=== PATIENT | female | born 1945 | race Caucasian/White ===

== ENCOUNTER 2017-04-18 12:00 | Inpatient (IN) | payer OTHER ==
[2017-04-18] MEDS ORDERED: NALOXONE HCL 0.4 MG/ML INJ ONE ×2 (12:04→12:36)
[2017-04-18] MEDS ORDERED: NALOXONE HCL 0.4 MG/ML INJ IVP ONE ×4 (12:12→14:40)
[2017-04-18] MEDS ORDERED: NALOXONE HCL 2 MG in D5W 500 ML IV SCH ×2 (12:15→14:00)
--- NOTE | 2017-04-18 12:17 | EDPHY ---
H & P Time Seen by Provider: 04/18/17 12:02 HPI/ROS: CHIEF COMPLAINT: Oxycodone overdose Limitations: Altered mental status HISTORY OF PRESENT ILLNESS: 71-year-old female presents after an intentional oxycodone overdose. Hip replacement 1 week ago, prescribed oxycodone, 90 tablets after the procedure. She is staying with her sister and [id number] while she recovers. Yesterday she was complaining of pain, but did not seem overly depressed. She was last seen at 11:30 p.m. last night by her sister. This morning, her family found her unconscious and barely breathing in her room. EMS was called. She had agonal respirations on EMS arrival. She was given intranasal Narcan, with improvement in respiratory status. This was an intentional overdose, as she tells me that she does not want to live any longer. Family confirms this. She was placed on an M1 hold by PD. REVIEW OF SYSTEMS: Unable to determine Past Medical/Surgical History: Hip replacement Depression Social History: staying with sister Physical Exam: General Appearance: Drowsy, moaning, opens eyes to voice and is able to answer a few questions, very limited verbal response, normal respiratory rate Eyes: Pupils 2 mm and equal ENT, Mouth: Mucous membranes dry Neck: Normal inspection Respiratory: Upper airway sounds present, good air exchange Cardiovascular: Regular tachycardia Gastrointestinal: Abdomen is soft Neurological: Drowsy, moves all extremities, does not follow commands Skin: Warm and dry Extremities: Normal inspection Psychiatric: Flat affect Constitutional: Initial Vital Signs Temperature (C) 36.4 C 04/18/17 12:21 Heart Rate 105 H 04/18/17 12:21 Respiratory Rate 24 H 04/18/17 12:21 Blood Pressure 101/64 04/18/17 12:21 O2 (L/minute) 15 Allergies/Adverse Reactions: No Allergies [NKA] Allergy (Verified 04/18/17 16:56) Home Medications: Medication Instructions Recorded Acyclovir [Zovirax 400 mg (*)] 400 mg PO TID PRN 04/18/17 Estropipate [Ogen 1.5mg (*)] 1.5 mg PO DAILY 04/18/17 oxyCODONE IR [Oxycodone Ir (*)] 5 - 10 mg PO Q4HRS PRN 01/05/18 Medical Decision Making - Diagnostics EKG Interpretation: EKG interpreted by me reveals normal sinus rhythm, rate 96, no ST or T segment changes. Imaging Results: CXR independently reviewed by me: NAD CXR after central line placement independently reviewed by me: no PTX Procedures: Procedure: Central line placement. Indication: Hypotension, poor vascular access. The risks and benefits were not discussed with the patient because she is obtunded. A timeout was observed. Full maximal sterile barrier technique was used including cap, gown, sterile gloves, large sheet, hand washing and chlorhexidine prep. The area was anesthetized with 1% lidocaine. A 7 Kazakh triple lumen was placed in the right subclavian vein using standard Seldinger technique. Ultrasound-guided technique. There were no complications. Blood return low pressure, dark blood. Patient tolerated procedure well. CXR results : Appropriate line placement, and no pneumothorax. X-ray was interpreted by myself. Radiologist interpretation is pending. The procedure was performed by myself. ED Course/Re-evaluation: This patient presents with a narcotic overdose in a suicidal attempt. On my initial exam, she is obtunded, but breathing adequately. Suctioning by RT, as she had copious upper airway sounds; gastric contents aspirated, c/w aspiration. Lungs are clear to auscultation after suctioning anteriorly. O2 sat 96% on NRB. Narcan 0.4 mg IV given, followed by a Narcan drip. She will need to be on a Narcan drip for several hours until the oxycodone clears her system. Charcoal was not given, given unknown time of ingestion and altered mental status. 1:15 p.m.-on a Narcan drip, respiratory rate 12, oxygen saturation 94% on non- rebreather, drowsy but opens eyes to verbal stimuli. Blood pressure 83/53, IV fluid bolus given. Chest x-ray reveals no infiltrate, though this patient aspirated prior to arrival; will likely need abx, will obs for now. The hospitalist service was consulted for admission to the ICU. 2 p.m.-the patient remains hypotensive. Peripheral access limited. I will place a central line. 3:00 p.m.-patient remains hypotensive after a 2nd L of normal saline. She continues to be on a Narcan drip with adequate respirations. A dopamine drip was started, will titrate to SBP 90. d/w Dr. Garcia, CXR after central line placement, heart border appears sharp, query anterior PTX. Doubt PTX, given 1 attempt without complications and a supraclavicular approach. Will repeat CXR while in ICU, Dr. Borges notified. Pt transferred to ICU on 100% NRB , on Narcan and Dopamine IV drips. Remains in critical condition, but stabilized. I spent a total of 45 minutes of critical care time in obtaining history, performing a physical exam, bedside monitoring of interventions, collecting and interpreting tests and discussion with consultants but not including time spent performing procedures. Differential Diagnosis: Altered mental status including but not limited to hypoglycemia, infectious process, CVA/ICH, electrolyte abnormality, head injury and intoxicants. - Data Points Laboratory Results: Laboratory Results 04/18/17 12:01 04/18/17 12:01 Medications Given: Heparin Sodium (Porcine) (Heparin Sc Injection) 5,000 unit SC Q8 SANG Stop: 10/15/17 15:59 Last Admin: 04/19/17 14:40 Dose: Not Given Sodium Chloride (Ns) 1,000 mls @ 125 mls/hr IV CONT SANG Stop: 10/15/17 12:59 Last Admin: 04/19/17 11:11 Dose: 1,000 mls Naloxone HCl 2 mg/ Dextrose 505 mls @ 0 mls/hr IV CONT SANG; Per Protocol PRN Reason: Protocol Stop: 10/15/17 13:59 Last Admin: 04/18/17 16:50 Dose: 505 mls Dopamine HCl/Dextrose (Dopamine 1600 Mcg/Ml (Premix)) 250 mls @ 0 mls/hr IV CONT SANG; Titrate PRN Reason: Protocol Stop: 10/16/17 04:59 Last Admin: 04/19/17 04:48 Dose: 250 mls Ampicillin Sodium/Sulbactam (Sodium 3 gm/ Sodium Chloride) 100 mls @ 200 mls/ hr IV Q6H SANG PRN Reason: Protocol Stop: 05/19/17 10:29 Last Admin: 04/19/17 16:02 Dose: 100 mls Discontinued Medications Dextrose (Dextrose 50% Syringe) 25 gm IVP ONCE ONE Stop: 04/18/17 16:46 Last Admin: 04/18/17 16:48 Dose: 25 gm Naloxone HCl 2 mg/ Dextrose 505 mls @ 0 mls/hr IV CONT SANG; Per Protocol PRN Reason: Protocol Stop: 10/15/17 12:14 Last Admin: 04/18/17 12:42 Dose: 505 mls Sodium Chloride (Ns) 1,000 mls @ 0 mls/hr IV ONCE ONE PRN Reason: Wide Open Stop: 04/18/17 12:41 Last Admin: 04/18/17 12:41 Dose: 1,000 mls Sodium Chloride (Ns) 1,000 mls @ 0 mls/hr IV ONCE ONE PRN Reason: Wide Open Stop: 04/18/17 13:52 Last Admin: 04/18/17 14:30 Dose: 1,000 mls Calcium Gluconate (Calcium Gluconate 1 Gm (Premix)) 50 mls @ 100 mls/hr IV ONCE ONE Stop: 04/18/17 14:42 Last Admin: 04/18/17 16:48 Dose: 50 mls Ampicillin Sodium/Sulbactam (Sodium 3 gm/ Sodium Chloride) 100 mls @ 200 mls/ hr IV Q12H SANG PRN Reason: Protocol Stop: 05/18/17 16:29 Last Admin: 04/19/17 04:17 Dose: 100 mls Dopamine HCl/Dextrose (Dopamine 1600 Mcg/Ml (Premix)) 250 mls @ 0 mls/hr IV EDNOW ONE; Titrate PRN Reason: Protocol Stop: 04/18/17 15:05 Last Admin: 04/18/17 15:09 Dose: 250 mls Sodium Chloride (Ns) 500 mls @ 0 mls/hr IV ONCE ONE PRN Reason: Wide Open Stop: 04/18/17 17:00 Last Admin: 04/18/17 17:26 Dose: 500 mls Sodium Chloride (Ns) 1,000 mls @ 0 mls/hr IV ONCE ONE PRN Reason: Wide Open Stop: 04/19/17 09:18 Last Admin: 04/19/17 10:00 Dose: 1,000 mls Insulin Human Regular (Humulin R) 10 unit IVP ONCE ONE Stop: 04/18/17 16:46 Last Admin: 04/18/17 16:48 Dose: 10 units Naloxone HCl (Narcan) 0.4 mg IVP EDNOW ONE Stop: 04/18/17 12:13 Last Admin: 04/18/17 12:12 Dose: 0.4 mg Naloxone HCl (Narcan) 0.4 mg IVP EDNOW ONE Stop: 04/18/17 12:41 Last Admin: 04/18/17 12:40 Dose: 0.4 mg Naloxone HCl (Narcan) 0.4 mg IVP EDNOW ONE Stop: 04/18/17 14:16 Last Admin: 04/18/17 14:20 Dose: 0.4 mg Naloxone HCl (Narcan) 0.4 mg IVP EDNOW ONE Stop: 04/18/17 14:41 Last Admin: 04/18/17 14:40 Dose: 0.4 mg Ondansetron HCl (Zofran) 4 mg IVP EDNOW ONE Stop: 04/18/17 15:41 Last Admin: 04/18/17 15:44 Dose: 4 mg Sodium Bicarbonate (Sodium Bicarbonate) 50 meq IVP ONCE ONE Stop: 04/18/17 14:14 Last Admin: 04/18/17 16:51 Dose: 50 meq Sodium Polystyrene Sulfonate (Kayexalate) 30 gm NE ONCE ONE Stop: 04/18/17 16:46 Last Admin: 04/18/17 16:50 Dose: 30 gm Departure - Departure Disposition: [facility] Inpatient Acute Clinical Impression: Narcotic overdose Qualifiers: Encounter type: initial encounter Injury intent: intentional self-harm Qualified Code(s): T40.602A - Poisoning by unspecified narcotics, intentional self-harm, initial encounter Suicide attempt by drug ingestion Qualifiers: Encounter type: initial encounter Qualified Code(s): T50.902A - Poisoning by unspecified drugs, medicaments and biological substances, intentional self-harm , initial encounter Respiratory failure Qualifiers: Chronicity: acute Respiratory failure complication: hypoxia Qualified Code(s): J96.01 - Acute respiratory failure with hypoxia Condition: Critical
[2017-04-18 12:21] LABS: PLATELET COUNT 207 10^3/uL (150-400)
[2017-04-18] MEDS ORDERED: NS 1,000 ML IV ONE ×2 (12:40→13:51)
--- NOTE | 2017-04-18 12:51 | CPEKG ---
Heart Rate: 96 RR Interval: 625 P-R Interval: 152 QRSD Interval: 84 QT Interval: 380 QTC Interval: 481 P [place]: 88 QRS [place]: 78 T Wave [place]: 76 EKG Severity - NORMAL ECG - EKG Impression: SINUS RHYTHM Electronically Signed By: Miranda Tony 18-Apr-2017 15:16:30
[2017-04-18] MEDS ORDERED: ACETAMINOPHEN 325 MG TAB PO PRN (12:55)
[2017-04-18] MEDS ORDERED: ONDANSETRON DISINTEGRATING 4 MG TAB PO PRN (12:55)
[2017-04-18] MEDS ORDERED: ONDANSETRON 4 MG/2 ML VIAL IVP PRN (12:55)
--- NOTE | 2017-04-18 13:44 | ASMTCMCOM ---
CM Note CM Note Notes: Pt sister Tia and brother in law Addison in [facility]. Addison reported that he discovered pt unresponsive in her room and called 911. They expressed that they did not want medical action taken. Tia stated that her sister wanted to and that is what she wants for her. Addison was open to conversation and resources and provided most of the information regarding the pt's current circumstances. Addison indicated that the pt recently had hip surgery in hopes that her pain would be alleviated. He stated that she has been in pain for quiet some time. She was upset that she continued to be in pain. He stated that they had a "normal" evening watching TV and playing cards with no indication that she was suicidal. Isatu and Addison stated that pt did not want to live and he iwas her wis was provided with pt education reagarding medical aid-in dying and compassion and choices website. Med chart does not reflect POA. Psych care/ pain managment likely. Psych eval to be completed when med clear. DC plan [facility] to follow. Date Signed: 04/18/2017 01:44 PM Electronically Signed By:Jose Daniel Palomino LCSW
[2017-04-18] MEDS ORDERED: SODIUM POLY SULF 15 GM/60 ML BOTTLE PR ONE ×2 (14:11→16:45)
[2017-04-18] MEDS ORDERED: SODIUM BICARBONATE 50 MEQ/50 ML SYR IVP ONE (14:13)
[2017-04-18] MEDS ORDERED: CALCIUM GLUCONATE 50 ML IV ONE (14:13)
[2017-04-18] MEDS ORDERED: INSULIN REGULAR HUMAN 100 UNIT/ML IVP ONE ×2 (14:13→16:45)
[2017-04-18] MEDS ORDERED: D50W 25 GM/50 ML SYR IVP ONE ×2 (14:14→16:45)
--- NOTE | 2017-04-18 14:53 | GHP ---
[f rep st] HISTORY AND PHYSICAL DATE OF ADMISSION: 04/18/2017 CHIEF COMPLAINT: Intentional opioid overdose. HISTORY OF PRESENT ILLNESS: The patient is a 71-year-old female, with a history of recent total hip replacement and depression, who presents to the emergency department with altered mental status and decreased respiratory drive. She lives independently, but had a hip replacement 1 week ago, and since then has been staying with her sister and gqsitox-hu-[id number]. The patient is currently quite somnolent on a Narcan drip and not cooperative with providing a history, and thus history is obtained from her family. Her sister states that her sister has been depressed. It sounds as though she underestimated the postop recovery course and has been struggling with postop pain. Although she did not overtly state she planned to overdose, they felt that she was growing more hopeless, and her sister believes she wished to no longer live. They think she may have a do not resuscitate order, although they are unsure. She was in poor spirits last night before bedtime. Her sister found her this morning in a semiconscious state with snoring-type respirations and they were unable to arouse her. They called 911 and she was found with agonal respirations by EMS, but was not overtly cyanotic. She received intranasal Narcan in the field with improvement in her respiratory status, but by the time she arrived to the emergency department, she was again somnolent with decreased respiratory drive. Copious secretions were suctioned from her respiratory tract and it is suspected that she aspirated. There have been no reports of fevers or cough prior to this event. She received 2 more doses of Narcan with good response, and ultimately required a Narcan drip. At the time of my evaluation, her respiratory rate is at 20, and she is 94% on 10 L of oxygen. She does open her eyes to verbal stimulus and answers simple questions and follows basic commands. However, she is not willing to provide a history. I inspected her bottle of oxycodone which was written for #90 tablets and is currently empty. She did report to the emergency department physician that she intentionally overdosed on her oxycodone. She is admitted to the intensive care unit on a Narcan drip for further management. PAST MEDICAL/SURGICAL HISTORY: 1. Osteoarthritis. 2. Total hip replacement 1 week ago. 3. Depression. MEDICATIONS: Please see [facility] for completed outpatient medication list. ALLERGIES: Unable to assess. FAMILY HISTORY: Reviewed and noncontributory. SOCIAL HISTORY: The patient lives independently. However, she has recently been staying with her sister and [id number] while recovering from hip surgery. Tobacco and alcohol status are unknown. REVIEW OF SYSTEMS: Unobtainable. PHYSICAL EXAMINATION: VITAL SIGNS: Current temperature is 36.4, blood pressure 92/58. However, she has trended down to the 80s over 60s. Heart rate is 96, respiratory rate 18 to 20. She is 94% on 10 L of oxygen by non- rebreather mask. GENERAL: The patient is somnolent though awakens to verbal stimuli. HEENT: Head is atraumatic, normocephalic. Pupils equal, round, reactive to light. Extraocular motions intact. Oropharynx is clear. Mucous membranes are dry. NECK: Supple. There is no JVD. HEART: Regular rate and rhythm. LUNGS: Reveal bibasilar crackles, with decreased air exchange. ABDOMEN: Soft, nondistended, nontender, with normoactive bowel tones. EXTREMITIES: Without cyanosis, clubbing, or edema. Warm, well perfused. NEUROLOGIC: She moves all 4 extremities. DATA REVIEWED: Chest x-ray performed in the emergency department shows a right lower lobe infiltrate. EKG shows normal sinus rhythm with no ST-segment or T-wave changes suggestive of acute ischemia. ASSESSMENT AND PLAN: The patient is a 71-year-old female with a history of osteoarthritis, recent hip replacement, who is admitted to the intensive care unit with an intentional opioid overdose. # Suicide attempt / Intentional opioid overdose. Patient is hypoxic and hypotensive, currently on a Narcan drip and protecting her airway. Her blood gas shows a pH of 7.32 with a normal pCO2. I will continue Narcan drip and wean as able as the oxycodone wears off. She may require intubation. Once she is medically cleared, she will need a psych evaluation and likely inpatient psychiatric treatment given the gravity of this suicide attempt. # Acute hypoxemic respiratory failure secondary to intentional opioid overdose. Currently on 10 L/minute of oxygen. It sounds as though she did aspirate with vague right lower lobe infiltrate on CXR and a white blood cell count of 13 ,000. Will obtain blood cultures, sputum culture, and cover with Unasyn. She is afebrile. Send a lactate. # Hypotension. This may be a volume issue and is improving with fluid boluses, but difficulty with IV access in ED and pt was started on Dopamine. Continue volume resuscitation and wean pressors as able. # Anion gap metabolic acidosis. Suspect lactic acidosis due to hypoperfusion in setting of respiratory failure, lactate pending. Plan for aggressive hydration and will follow closely with q6h lactates. # Acute kidney injury. It is unclear what her baseline is. She presents with creatinine of 2. I suspect this is prerenal secondary to hypoperfusion. Will send urine studies to calculate a FENa. Will hydrate and follow her renal function closely. # Hyperkalemia. K 5.9, repeat 6. Give Calcium gluconate, sodium bicarb, insulin / dextrose now. Rectal kayexalate. Repeat K this afternoon. Should also improve with hydration. # Elevated LFT's. Again, suspect hypoperfusion. Hydrate and follow. # Status post total hip arthroplasty. There is no evidence of a fall as she was found in her bed. She will require PT/OT once her respiratory status is stabilized. # DVT prophylaxis, heparin. # Code status: Pt has a DNR MOLST form signed in 2013, which pre-dates her acute suicidality. Discussed with family that we are obligated to treat a suicide attempt, which we did in the ED before we had her MOLST. At this point , she is stable. Will continue treatment for suicide attempt with narcan drip, O2, atbx for aspiration pna, IVF's for organ hypoperfusion and electrolyte management. However, will honor her DNR from 2013 in the event of an unexpected arrest. # Disposition: Admit to inpatient status. She will require greater than 48 hours hospitalization for ongoing management of her respiratory failure, aspiration pneumonia, and suicide attempt. /[id number]/MODL MTDD
[2017-04-18] MEDS ORDERED: ONDANSETRON 4 MG/2 ML VIAL IVP ONE (15:40)
[2017-04-18] MEDS: NS 1,000 ML IV SCH (16:23)
[2017-04-18] MEDS: AMPICILLIN/SULBACTAM 3 GM in NS 100 ML IV SCH (16:28)
[2017-04-18] MEDS: HEPARIN 5,000 UNIT/0.5 ML SYR SC SCH ×2 (16:49→22:01)
[2017-04-18] MEDS ORDERED: SODIUM BICARBONATE 50 MEQ/50 ML SYR ONE (16:50)
[2017-04-18] MEDS ORDERED: NS 500 ML IV ONE (16:59)
--- NOTE | 2017-04-18 17:03 | PDMN ---
Medical Necessity Medical necessity: Pt meets INPT criteria per MD and [facility] M-153 Drug Ingestion or Overdose (opioid overdose - pt hypoxic and hypotensive with acute hypoxemic respiratory failure on 10L O2, anion gap metabolic acidosis, acute kidney injury , hyperkalemia, elevated LFTs, suspected hypoperfusion req. IV fluids, IV Narcan , IV Dopamine s/p recent SAY).
[2017-04-18 17:41] LABS: CREATINE KINASE 101 IU/L (0-156)
[2017-04-18] MEDS ORDERED: AMPICILLIN/SULBACTAM 3 GM in NS 100 ML IV SCH (18:00)
[2017-04-19] MEDS: AMPICILLIN/SULBACTAM 3 GM in NS 100 ML IV SCH ×4 (04:17→20:52)
[2017-04-19 04:27] LABS: PLATELET COUNT 164 10^3/uL (150-400)
[2017-04-19] MEDS: HEPARIN 5,000 UNIT/0.5 ML SYR SC SCH ×3 (05:33→20:52)
--- NOTE | 2017-04-19 09:11 | HOSPPROG ---
Hospitalist Progress Note Assessment/Plan: Intentional opioid overdose with AHRF initially requiring 15 LPM and narcan drip - first suicide attempt per pt report. She is irritable and not interested in discussing her mental health. Denies intent to self harm. Off Narcan drip, respiratory status improved, 1 LPM psych eval for inpt tx when medically cleared Hypotension - Suspect secondary to opiates / volume depletion, still requiring dopamine Repeat fluid bolus this am ok to tolerate MAP of 60, this is not sepsis wean dopamine as able Elevated LFT's - shock liver is suspected check hepatitis panel, u/s AGMA - resolved, secondary to lactic acidosis in setting of hypoperfusion ROSENDO - resolved with IVF's Hyperkalemia - resolved S/P SAY - denies pain at this time DNR - will honor MOLST from 2013, but need to treat suicide attempt DVT PPLX - SANG Dispo - cont inpt, M1 hold Subjective: Pt is awake, irritable, a bit rude. She wants a coke. She does not want to discuss any h/o depression or self harm. She says she "doesn't remember anything", but notes it didn't go well after her hip surgery. Denies pain at this time. Objective: Vital Signs Temp Pulse Resp BP Pulse Ox 37.4 C 95 11 L 112/52 L 96 04/19/17 00:00 04/19/17 07:00 04/19/17 07:00 04/19/17 07:00 04/19/17 07:00 Laboratory Results 04/19/17 04:10 04/19/17 04:00 04/18/17 04/19/17 04/20/17 05:59 05:59 05:59 Intake Total 2905 Output Total 1250 Balance 1655 - Physical Exam Constitutional: no apparent distress Eyes: PERRL Ears, Nose, Mouth, Throat: moist mucous membranes Cardiovascular: regular rate and rhythym Respiratory: no respiratory distress, clear to auscultation Gastrointestinal: normoactive bowel sounds, soft, non-tender abdomen Skin: warm Musculoskeletal: full muscle strength Neurologic: AAOx3 Psychiatric: interacting appropriately ICD10 Worksheet Patient Problems: Problems Problem Status Onset Narcotic overdose Acute Respiratory failure Acute Suicide attempt by drug ingestion Acute
[2017-04-19] MEDS ORDERED: NS 1,000 ML IV ONE (09:17)
[2017-04-19] MEDS: NS 1,000 ML IV SCH ×2 (09:47→11:11)
--- NOTE | 2017-04-19 12:02 | GCON ---
[f rep st] CONSULTATION PULMONARY/CRITICAL CARE CONSULTATION REFERRING PHYSICIAN: Bessy Gann MD REASON FOR REFERRAL: Evaluation and management of metabolic acidosis and respiratory failure. HISTORY OF PRESENT ILLNESS: The patient is a 71-year-old woman with a history of a recent total hip replacement and depression. Her hip replacement was done about a week ago and she has been staying w ith her sister and [id number]-[id number]. The patient has apparently been depressed and suffering from post operative pain. She was in fairly poor spirits on the day prior to admission, then was found this mo rning in a semiconscious state with reduced respirations and she could not be aroused. EMS was patel antwon. She received intranasal Narcan with improvement in her respiratory status, but this declined by t he time she got to the emergency department. Oral suctioning revealed a large amount of thick secret ions, and it was felt that she had probably aspirated. She was given several more doses of Narcan an d a nasal trumpet was placed, with transient improvement in her respiratory symptoms. She was then p laced on a Narcan drip. She is responsive to noxious stimuli, but is not following commands or answe ring questions. PAST MEDICAL HISTORY: 1. Total hip replacement a week ago. 2. Depression. MEDICATIONS: At the time of admission include oxycodone, , and Ogen. ALLERGIES: None. SOCIAL HISTORY: The patient usually lives independent, but has been staying with family postoperativ natalee. REVIEW OF SYSTEMS: Unobtainable. PHYSICAL EXAMINATION: GENERAL: The patient is somnolent but arousable to noxious stimuli while on t he Narcan drip. VITALS: Her blood pressure is 98/57 with a heart rate of 94. She is afebrile. Oxy gen saturations are 98% on 5 L. HEENT: Normocephalic and atraumatic. No icterus. She has a nasal trumpet in place. NECK: No adenopathy. Trachea is midline. CHEST: Clear to auscultation. CARDIA C: Regular rate and rhythm without murmur. ABDOMEN: Soft, nontender. Bowel sounds are present. E XTREMITIES: No clubbing, cyanosis, or edema. NEURO: The patient is somnolent but arousable to noxi ous stimuli. She is able to move all 4 extremities symmetrically, but does not reliably follow comma nds. LABORATORY DATA: A chemistry group is remarkable for potassium of 5.9. An anion gap is 25 with a ca rbon dioxide level of 9, creatinine is 2.0. An AST is 695 and ALT is 688. A white blood count is 12 .9 with a hemoglobin 14.8. A venous lactate is 6.2. Blood gas shows a pH of 7.32, a pO2 of 73, a CO 2 of 36, and a bicarbonate of 18. A tox screen is negative for acetaminophen and non-negative for be nzodiazepines. IMAGING: A chest x-ray shows possible right pneumonia. ASSESSMENT: 1. Intentional opiate overdose. Her urine opiate screen is negative, but the patient was known to b e taking opiates and in the last week she has apparently taken all 90 of the oxycodone 5 mg tablets t hat were initially prescribed. She has responded to Narcan drip and is currently still sedated but i s maintaining her airway. I would anticipate given the relatively short half-life of the oxycodone a s well as her response Narcan that she should be clearing by the morning. 2. Metabolic acidosis. This is likely due to decreased respirations contributing to hypoxemia and s ystemic hypoperfusion/hypoxemia. This is primarily a lactic acidosis. She also could have a compone nt of aspiration pneumonia, but her blood pressure is adequate and I think her systemic perfusion is currently adequate. I suspect that her lactic acidosis will clear with IV fluids and Narcan. 3. Renal insufficiency. This is likely acute and due to hypoperfusion/hypotension. The patient has already received several liters of fluid. 4. Transaminitis. This also is likely due to hypotension/hypoperfusion. Acetaminophen levels are n ormal, arguing against Tylenol overdose causing this. 5. Hyperkalemia. The patient's ECG does not show acute changes suggesting cardiac toxicity from the hyperkalemia. Nonetheless, treatment is warranted. 6. Probable aspiration. The patient has an elevated white blood count, pulmonary infiltrates, and h ad secretions in the back of her throat suggesting aspiration. RECOMMENDATIONS: 1. Continue Narcan drip and IV fluids. Bicarbonate has been given. Lactate will be rechecked. 2. Continue Unasyn. Follow in the ICU. /[id number]/MODL
--- NOTE | 2017-04-19 13:23 | PDINTPN ---
Tax Map Technician Progress Note Assessment/Plan: Assessment: Opiate OD: Recovering, with no ongoing signs of respiratory depression. Lucid and oriented, denies pain. Hypotension: Improved, just weaned off DA and SBP is 95 Transaminitis: Likely "shock liver". Aspiration: RLL infiltrate. Minimal oxygen needs, afebrile with elevated WBC. On Unasyn ROSENDO: Resolved. Plan: Mental health eval. Complete a short course of PO antibiotics for probable aspiration. Should probably have LFTs rechecked in 48 hours. 04/19/17 13:25 04/19/17 13:26 Subjective: Feels OK, denies pain. Appetite OK. Objective: Vital Signs Temp Pulse Resp BP Pulse Ox 37.2 C 100 20 100/56 L 93 04/19/17 08:00 04/19/17 12:00 04/19/17 11:58 04/19/17 12:00 04/19/17 12:00 Laboratory Results 04/19/17 04:10 04/19/17 04:00 04/18/17 04/19/17 04/20/17 05:59 05:59 05:59 Intake Total 2905 Output Total 1250 Balance 1655 U/S: Steatosis. Images reviewed by me. Physical Exam - Physical Exam General Appearance: alert, no apparent distress EENT: normal ENT inspection Neck: normal inspection Respiratory: crackles (right base) Cardiac/Chest: regular rate, rhythm, No edema Abdomen: normal bowel sounds, non-tender Skin: normal color, warm/dry Extremities: normal inspection Neuro/Psych: alert, normal mood/affect, oriented x 3 ICD10 Worksheet Patient Problems: Problems Problem Status Onset Narcotic overdose Acute Respiratory failure Acute Suicide attempt by drug ingestion Acute
[2017-04-19] MEDS ORDERED: ACYCLOVIR 400 MG TAB PO PRN (18:46)
[2017-04-20] MEDS: AMPICILLIN/SULBACTAM 3 GM in NS 100 ML IV SCH (04:40)
[2017-04-20] MEDS: HEPARIN 5,000 UNIT/0.5 ML SYR SC SCH (04:41)
[2017-04-20 05:49] LABS: PLATELET COUNT 98 10^3/uL (150-400)
[2017-04-20 08:39] VITALS: BP 118/67; PULSE 84; RESP 16; TEMP 99; O2SAT 95
--- NOTE | 2017-04-20 08:39 | HOSPPROG ---
Hospitalist Progress Note Assessment/Plan: Intentional opioid overdose with AHRF initially requiring 15 LPM and narcan drip - first suicide attempt per pt report. Spirits improved today, off narcan. medically clear for transfer to inpt psych today, discussed with TLC Hypoxemia - likely atelectatic with probably element of aspiration PNA change from Unasyn to oral augment, complete 7 days tx Hypotension - Suspect secondary to opiates / volume depletion, off pressors, BP stable Elevated LFT's - shock liver is suspected, LFT's trending down nicely AGMA - resolved, secondary to lactic acidosis in setting of hypoperfusion ROSENDO - resolved with IVF's, now taking po well Hyperkalemia - resolved S/P SAY - denies pain at this time DNR - will honor MOLST from 2013, but need to treat suicide attempt DVT PPLX - SANG Dispo - cont inpt, M1 hold, ready for transfer to inpt psych, TLC working on placemnet Objective: Vital Signs Temp Pulse Resp BP Pulse Ox 37.2 C 77 18 113/64 96 04/20/17 04:00 04/20/17 04:00 04/20/17 04:00 04/20/17 04:00 04/20/17 04:00 Laboratory Results 04/20/17 05:45 04/20/17 05:45 04/19/17 04/20/17 04/21/17 05:59 05:59 05:59 Intake Total 2905 3067.3 Output Total 1250 550 Balance 1655 2517.3 ICD10 Worksheet Patient Problems: Problems Problem Status Onset Narcotic overdose Acute Respiratory failure Acute Suicide attempt by drug ingestion Acute
[2017-04-20] MEDS ORDERED: AMOXICILLIN/CLAVULANATE POT 875/125 MG TAB PO SCH (09:00)
--- NOTE | 2017-04-20 11:05 | ASMTCMCOM ---
CM Note CM Note Notes: Patient and sister not happy about having to stay at [facility] or having to be admitted to a psych facility. This CM explained why she was on a Hold and why she now needed psych tx, Patient denying that she ever was suicidal. Sister will get patient clothes. [facility] working on placement. Date Signed: 04/20/2017 11:05 AM Electronically Signed By:Jeanne Leyva LCSW
--- NOTE | 2017-04-20 14:52 | GDS ---
[f rep st] DISCHARGE SUMMARY DISCHARGE DIAGNOSIS: 1. Suicide attempt by intentional opioid overdose. 2. Acute hypoxemic respiratory failure secondary to opioid overdose. 3. Hypotension, secondary to opiates, resolved. 4. Shock liver, secondary to hypoperfusion, improving. 5. Acute kidney injury. 6. Acute kidney injury secondary to hypoperfusion, resolved. 7. Anion gap metabolic acidosis, secondary to lactic acidosis in the setting of hypoperfusion. 8. Hyperkalemia resolved. 9. Status post total hip arthroplasty. CONSULTANTS: Dr. Quicny Gross, Pulmonology/[facility]. HISTORY: For details, please see the history and physical dated 04/18/2017. In brief, Ms. Roth is a 71-year-old female with history of a depression who recently underwent total hip arthroplasty and was discharged from the hospital with #90 oxycodone. A week after hospital discharge, she intentiona lly overdosed on her entire bottle of oxycodone, which was found empty by [facility]. She was discovered with agonal aspirations and was brought to the emergency department with hypoxem ia, hypotension and tachycardia. She was admitted to the hospital for further management. HOSPITAL COURSE: The patient required multiple doses of Narcan in in the emergency department and sylvie crystal was admitted to the intensive care unit on a Narcan drip. She required 15 L of oxygen by no n-rebreather, though was able to protect her airway on the Narcan drip and did not require intubation . She did, however, have evidence of aspiration on arrival and was treated for aspiration pneumonia with Unasyn. This was transitioned to oral Augmentin at the time of discharge. Other complications from her overdose included acute kidney injury which resolved with IV fluids. In addition, she had s hock liver with her AST and ALT enzymes in the 3500-range. These are trending down nicely at the rebecca e of discharge and should be repeated in the next 48 to 72 hours to ensure they trend normal. Her la ctate on arrival was 6.2. This was thought to be secondary to hypoperfusion in the setting of opioid overdose. This trended down to normal. This was not thought to be secondary to sepsis. She did req uire dopamine pressor support for hypotension likely induced by opioid overdose. We were able to wea n her off the dopamine the following day. Her oxygen requirement resolved and she is mentating clear ly. She does not exhibit very good insight into her this event and has inappropriate laughter and ir ritability. Once she was medically cleared, Psychiatric consultation was obtained and she has been o n an M1 hold since admission. She will be transferred to inpatient psychiatry hospital for psychiatr ic stabilization given the gravity of this suicide attempt. DISPOSITION: Patient is discharged to inpatient psychiatric hospital in stable condition. DISCHARGE MEDICATIONS: Please see [facility] for a complete updated outpatient medication list. There are no new medications on discharge. Copy requested to: MD Kolby Pham CO /[id number]/MODL
--- NOTE | 2017-04-20 16:37 | ASDISCHSUM ---
Discharge Information Plan Status:Psych Placement/Petitioned Medically Cleared to Leave:04/19/2017 Discharge Date:04/20/2017 02:55 PM CM D/C Disposition:Other Psych, Not [place] ADT D/C Disposition:Other Psych, Not [place] Projected Discharge Date:04/20/2017 03:00 PM Transportation at D/C:ALS/BLS Discharge Delay Reason: Follow-Up Date:04/20/2017 03:00 PM Discharge Slot: Final Diagnosis:Suicide attempt, Narc OD Placement Information Patient Contact Information Contact Name:LORENZO Relationship:Rhonda Address: Work Phone: City: [facility] Phone: State/Zip Code: Email: Financial Information Financial Class:Medicare Advantage Plans Primary Plan Desc:[employer] ADV IP Primary Plan Number:[id number] Secondary Plan Desc: Secondary Plan Number: Assessment Information [facility] CM Progress Note CM Note CM Note Notes: Pt sister Tia and brother in law Addison in [facility]. Addison reported that he discovered pt unresponsive in her room and called 911. They expressed that they did not want medical action taken. Tia stated that her sister wanted to and that is what she wants for her. Addison was open to conversation and resources and provided most of the information regarding the pt's current circumstances. Addison indicated that the pt recently had hip surgery in hopes that her pain would be alleviated. He stated that she has been in pain for quiet some time. She was upset that she continued to be in pain. He stated that they had a "normal" evening watching TV and playing cards with no indication that she was suicidal. Istau and Addison stated that pt did not want to live and he iwas her wis was provided with pt education reagarding medical aid-in dying and compassion and choices website. Med chart does not reflect POA. Psych care/ pain managment likely. Psych eval to be completed when med clear. DC plan [facility] to follow. Date Signed: 04/18/2017 01:44 PM Electronically Signed By:Jose Daniel Palomino LCSW LACE LACE Length of stay for Answers: 1 day current admission Acuity / Level of Care Answers: Was the patient admitted to hospital via the emergency department? Yes: Emergency dept visits in Answers: 1 last 6 months Score: 5 Date Signed: 04/18/2017 01:45 PM Electronically Signed By:Jose Daniel Palomino LCSW [facility] CM Progress Note CM Note CM Note Notes: Patient and sister not happy about having to stay at [facility] or having to be admitted to a psych facility. This CM explained why she was on a Hold and why she now needed psych tx, Patient denying that she ever was suicidal. Sister will get patient clothes. [facility] working on placement. Date Signed: 04/20/2017 11:05 AM Electronically Signed By:Jeanne Leyva LCSW Case Management Discharge Plan Note Case Management Discharge Discharge Order Complete? Answers: Yes Patient to Obtain Answers: Other Notes: [facility] Psych Medications Transportation Arranged Answers: [facility]ARGAR[facility] Transport will Pick (Date 04/20/2017 03:00 PM & Time) [employer] Complete Answers: Yes Case Management Transport Answers: Yes Form Complete Faxed Final Orders Answers: Yes Family Notified Answers: Yes Notes: Sister present Discharge Comments Notes: Patient to discharge to [facility]. [facility] to p/u at 1500. Date Signed: 04/20/2017 01:43 PM Electronically Signed By:Jeanne Leyva LCSW Intervention Information
[2017-04-21 04:23] LABS: HEPATITIS B SURFACE ANTIGEN NEGATIVE (NEGATIVE)
[2017-04-21 04:29] LABS: HEPATITIS A ANTIBODY IGM (BCH) NEGATIVE (NEGATIVE); HEPATITIS B CORE AB IGM NEGATIVE (NEGATIVE)
[2017-04-21 04:41] LABS: HEPATITIS C ANTIBODY TOTAL NEGATIVE (NEGATIVE)
== END 2017-04-20 14:55 | DRG 917 ==
LOC: EEVIPCON 12:39 → UNDOADMIN 12:50 → F2N 15:54
PROVIDERS: ADMIT Hospitalist; ATTEND Hospitalist
DX: T40.2X2A Poisoning by other opioids, intentional self-harm, initial encounter (principal); J96.01 Acute respiratory failure with hypoxia; K72.00 Acute and subacute hepatic failure without coma; E87.2 Acidosis; F32.9 Major depressive disorder, single episode, unspecified; N17.9 Acute kidney failure, unspecified; E87.5 Hyperkalemia; Z96.649 Presence of unspecified artificial hip joint
CPT/HCPCS: 80305; 92523-GN; 92610-GN; 96374; 97161-GP; 97165-GO; 97535-GO; G0472; G0480; G8987-GO-CJ; G8988-GO-CI; G8996-GN-CH; G8997-GN-CH; G8998-GN-CH; J0295; J0610; J1265; J1815; J2310; J2405